=== PATIENT | female | born 1975 | race Caucasian/White ===

== ENCOUNTER 2016-04-29 05:57 | Emergency (ER) | payer MEDICAID ==
[2016-04-29 06:08] VITALS: BP 136/81
[2016-04-29] MEDS ORDERED: KETOROLAC TROMETHAMINE 60 MG/2 ML VIAL IM ONE ×2 (06:30→06:34)
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
--- OUTSIDE RECORDS SUMMARY | 2016-04-29 06:35 | XMS REPORT | Continuity of Care Document ---
:1975 Author Organization [facility] ([facility]) Address [address] [place] [address] Phone [phone] Care Team Providers Name Role Phone Abbey Barraza Primary Care Provider [phone] Source Comments This disclosure is being made pursuant to the Care Everywhere program, applicable federal and state laws, and may not contain all informaitonavailable regarding this patient.[facility] ([facility]) Active Allergies and Adverse Reactions Allergen Noted Date Severity Reactions Comments Amoxicillin 06/18/2009 Rash Codeine 06/18/2009 Rash Current Medications Prescription Sig. Disp. Refills Start Date End Date Status levothyroxine 150 Take 1 Tab by mouth 30 Tab 3 11/23/2012 Active mcg tablet Every morning. Indications: HYPOTHYROIDISM acetaminophen 500 Take 1 Tab by mouth 60 Tab 1 12/10/2012 Active mg tablet every 6 hours as needed. Indications: PAIN ibuprofen 600 mg Take 1 Tab by mouth 60 Tab 1 12/10/2012 Active tablet every 6 hours as needed. Indications: PAIN docusate 100 mg Take 1 Cap by mouth 60 Cap 1 12/10/2012 Active capsule 2 times daily as needed. Indications: CONSTIPATION enoxaparin inject 40 mg 42 Syringe 0 12/10/2012 Active (LOVENOX) 40 mg/0.4 subcutaneously mL injection daily. Indications: syringe DVT prophylaxis Active Problems Problem Noted Date Advanced maternal age 0507/17/2012 Overview: - Weekly NSTs starting at 36 weeks. - Delivery no later than 40 weeks. Class II obesity (BMI 39 at NOB) 07/17/2012 Overview: - Every 4 wk growth scans - 1 hour early glucola failed; passed 3hr GTT at 24w6d and again at 30w1d H/O section 06/26/2012 Overview: - History of three SVDs followed by LTCS for breech. - Patient desires .Consent signed on 08/28/2012 Hypothyroidism 06/26/2012 Overview: On Synthroid. Pre- dose Synthroid 150mcg HSIL (high grade squamous intraepithelial lesion) on Pap smear 06/26/2012 Overview: -No show for multiple colp appts -Patient declines colp during . 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 She was on warfarin for 6 months. Negative coagulopathy work-up - Will need 6 weeks anticoagulation. H/o gestational hypertension 06/26/2012 Overview: - Baseline 24 hour urine 94.6 mg protein on 06/23/12 Immunizations Name Dates Previously Given Next Due Influenza, quadrivalent PF 12/09/2012 Tdap 11/01/2012 Social History Tobacco Use Types Packs/Day Years Used Date Former Smoker Smokeless Tobacco: Former User Quit: 06/26/1998 Alcohol Use Drinks/Week oz/Week Comments No Last Filed Vital Signs Vital Sign Reading Time Taken Blood Pressure 114/72 12/10/2012 4:00 PM CDT Pulse 80 12/10/2012 4:00 PM CDT Temperature 36.6 C (97.9 F) 12/10/2012 4:00 PM CDT Respiratory Rate 20 12/10/2012 4:00 PM CDT Height 1.64 m (5' 4.57") 12/07/2012 7:44 AM CDT Weight 114.306 kg (252 lb) 12/07/2012 7:44 AM CDT Body Mass Index 42.5 12/07/2012 7:44 AM CDT Oxygen Saturation 99% 12/07/2012 8:30 PM CDT Plan of Care Health Maintenance Due Date Last Done Comments Hepatitis B Vaccine (1 of 3 - Primary Series) 1975 MMR Vaccine 1993 Cervical Cancer Screening 2005 Mammogram 2015 Influenza Vaccine: Seasonal (#1) 09/21/2015 12/09/2012 Lipid Disorder Screening 05/08/2017 05/08/2012 Td Vaccine 11/01/2022 11/01/2012 Tdap Vaccine Completed 11/01/2012 Results from Last 3 Months Not on file
== END 2016-04-29 06:31 | disposition home or self-care (01) ==
LOC: ER 05:57
DX: M54.5 Low back pain (principal); Z87.891 Personal history of nicotine dependence; F31.9 Bipolar disorder, unspecified